=== PATIENT | female | born 1960 | race Two or more races ===

== ENCOUNTER 2024-09-14 19:16 | Emergency (ER) | payer MEDICAID, SELFPAY ==
[2024-09-14 19:17] VITALS: BMI 42.0
[2024-09-14 20:29] VITALS: BP 159/89; PULSE 94; RESP 18; TEMP 37.3; O2SAT 95
--- NOTE | 2024-09-14 20:40 | XR_ITS ---
Examination: Upright PA chest single view TECHNIQUE: Upright PA chest single view Exam date and time: September 14, [id number] hours INDICATIONS: Coughing shortness of breath beginning this morning. FINDINGS: Minimal increased markings left base Normal heart size. Right lung clear IMPRESSION: Atelectasis versus early pneumonia left base, the appearance should be clinically correlated
[2024-09-14] MEDS: dexAMETHasone 4 MG TABLET 10 MG PO (20:55)
--- NOTE | 2024-09-14 22:50 | EDNOTE_ITS ---
Upper Respiratory Inf. RME/HPI General Chief Complaint: Flu Like Symptoms Stated Complaint: FLU LIKE SYMPTOMS Time Seen by Provider: 09/14/24 20:40 Arrival date/time: 09/14/24 19:16 63F with history of asthma presents to ED with 1 day of nasal congestion, cough, and body aches. Family members have similar symptoms. Limitations: no limitations Related Data Home Medications ?Medication ?Instructions ?Recorded ?Confirmed albuterol sulfate 90 mcg/actuation 2 puff inhalation B ID 06/20/20 06/20/20 aerosol inhaler (Ventolin HFA) Previous Rx's ?Medication ?Instructions ?Recorded albuterol sulfate 90 mcg/actuation 2 puff inhalation Q 6H PRN 05/22/23 aerosol inhaler (Ventolin HFA) shortness of breath or wheezing #8.5 grams fluticasone propionate 50 1 spray intranasal QDAY #16 grams 05/22/23 mcg/actuation nasal spray,suspension (Flonase Allergy Relief) ibuprofen 800 mg tablet (IBU) 800 mg PO Q8H #20 tabs 1 07/23/22 loratadine 10 mg tablet 10 mg PO QDAY #30 tabs 05/22 promethazine-DM 6.25 mg-15 mg/5 mL 5 ml PO Q6H #118 mL 05/22/23 oral syrup Allergies Allergy/AdvReac Type Severity Reaction Status Date / Time Penicillins Allergy Severe Anaphylaxis Verified 05/22/23 10:35 Review of Systems Review of Systems Systems Reviewed: All systems reviewed, normal except as documented Constitutional Constitutional: Reports system reviewed and no additional complaints, except as documented, Reports as per HPI, Reports body ache(s), Denies fever(s) and Denies headache(s) ENT Ears, Nose, Mouth, and Throat: Reports as per HPI, Denies disequilibrium, Denies headache(s) and Reports nasal congestion Cardiovascular Cardiovascular: Reports system reviewed and no additional complaints, except as documented, Denies chest pain and Denies dyspnea Respiratory Respiratory: Reports system reviewed and no additional complaints, except as do cumented, Reports as per HPI, Reports cough and Denies dyspnea Gastrointestinal Gastrointestinal: Reports system reviewed and no additional complaints, except as documented, Denies abdominal pain, Denies nausea and Denies vomiting Neurologic Neurologic: Reports system reviewed and no additional complaints, except as documented, Denies confusion, Denies disequilibrium and Denies headache(s) Psychiatric Psychiatric: Denies confusion Past Medical History Past Medical History NEUROLOGIC: Negative Neurological Disorders, Cerebrovascular Accident, Transient Ischemic Attacks (TIA), Dementia, Alzheimer's Disease, Parkinson's Disease, Brain Tumor, Meningitis, Seizures, Epilepsy, Multiple Sclerosis, Cerebral Palsy, Amyotrophic Lateral Sclerosis (ALS/Sissy Gehrig's), Guillain-[place] Syndrome, Spina Bifida, Paralysis, Peripheral Neuropathy, Barksdale's Palsy, Subdural Hematoma, Migraine, Head Trauma, Spinal Cord Injury or Traumatic Brain Injury CARDIAC: Negative Cardiac Disorders, Myocardial Infarction, Cardiac Arrhythmia, Atrial Fibrillation, Angina, Heart Murmur, Coronary Artery Disease, Atherosclerotic Heart Disease, Peripheral Vascular Disease, Hypercholesterolemia, Aneurysm, Congestive Heart Failure, Congenital Heart Disease, Valvular Heart Disease, Rheumatic Fever, Cardiomyopathy, Edema, Pericarditis, Cellulitis, Deep Vein Thrombosis, Hypertension, Hypotension or Varicose Veins RESPIRATORY: Positive Asthma; Negative Chronic Obstructive Pulmonary Disease (COPD), Bronchitis, Emphysema, Pneumonia, Pulmonary Fibrosis, Cystic Fibrosis, Tuberculosis, Pulmonary Embolism, Pulmonary Edema or Sleep Apnea GASTROINTESTINAL: Positive Obesity; Negative Gastrointestinal Disorders, Hepatitis, Cirrhosis, Pancreatitis, Celiac Disease, Gall Bladder Disease, Gastrointestinal Bleed, Esophageal Varices, B arrett's Esophagus, Colitis, Ulcerative Colitis, Diverticulitis, Diverticulosis, Ulcer, Irritable Bowel, Crohn's Disease, Obstructive Bowel, Hiatal Hernia, Hemorrhoids or Gastroesophageal Reflux Disease GENITOURINARY: Positive Genitourinary Disorders and Kidney Stones (removed many years ago.); Negative Renal Disease, Polycystic Kidney Disease, Neurogenic Bladder, Inguinal Hernia or Dialysis REPRODUCTIVE: Positive Previous Pregnancies (2 children); Negative Endometriosis, Pelvic Inflammatory Disease or Uterine Prolapse MUSCULOSKELETAL: Negative Musculoskeletal Disorders, Muscular Dystrophy, Myasthenia Gravis, Marfan's Syndrome, Arthritis, Rheumatoid Arthritis, Osteoporosis, Degenerative Disk Disease, Gout, Scoliosis, Carpal Tunnel Syndrome, Fibromyalgia, Fractures, Degenerative Joint Disease, Osteomyelitis or Poliovirus ENT: Negative Cataracts, Glaucoma, Blind, Retinal Detachment, Macular Degeneration, Ear Infection, Deafness, Head Trauma or Eye Prosthesis ENDOCRINE: Negative Endocrine Disorders, Diabetes Mellitus Type 1, Diabetes Mellitus Type 2, Hypoglycemia, [place]'s Syndrome, [place]'s Disease, Hyperthyroidism, Hypothyroidism, Parathyroid Disease, Pituitary Disease, Systemic Lupus Erythematosus, Syndrome of Inappropriate Antidiuretic Hormone (SIADH), Adrenal Disease or Graves' Disease HEMATOLOGIC: Negative Blood Disorders, Anemia, Leukemia, Hemophilia, Thalassemia, Sickle Cell Disease or Clotting Problems PSYCHO/SOCIAL: Negative Psychiatric Problems, Schizophrenia, Recreational Drug Use, Bipolar Disorder, Depression, Anxiety, Behavior Problems, Self-Mutilation, Attention Deficit Disorder, Attention Deficit Hyperactivity Disorder, Depression, Post Traumatic Stress Disorder or Eating Disorder OTHER HISTORY: Positive Hospitalization; Negative Autoimmune Disease, Down Syndrome, Autism, Developmental Delay, Shingles, Falls, Blood Transfusions, Anesthesia Reactions, Organ Transplant, Chemotherapy, Radiation Therapy, Hyperbaric Therapy, MRSA, VRSA, Vancomycin- Resistant Enterococci, Human Immunodeficiency Virus (HIV), Chicken Pox, Measles, Mumps, Rubella (Latvian Measles), Pertussis, Clostridium Difficile or Cancer Family History FAMILY HISTORY: Negative Family Psychiatric Problems, Family Respiratory Disorders, Family Cardiac Disorders, Family Gastrointestinal Problems, Family Cancer, Family Surgery or Family Anesthesia Reaction Surgical History SURGICAL: Positive Abdominal Surgery, Tubal Ligation and Section; Negative Cardiac Surgery, Pacemaker, Angiogram, Endocrine Surgery, Thyroide ctomy, Ear Surgery, Eye Surgery, Nose Surgery, Oral Surgery, Tonsillectomy, Adenoidectomy, Cochlear Implant, Corneal Transplant, Throat Surgery, Tracheostomy, Gastric Bypass Surgery, Gastrostomy, Bowel Surgery, Joint Replacement, Amputation, Open Reduction Internal Fixation, Arthroscopy, Neurologic Surgery, Brain Shunt, Mastectomy, Lumpectomy, Hysterectomy or Organ Transplant Social History SMOKING STATUS: Never smoker SUBSTANCE USE: does not use ED Exam General Limitations: Present no limitations General appearance: Present alert and in no apparent distress Head Head exam: Present atraumatic Eye Eye exam: Present normal appearance, PERRL and EOMI ENT ENT exam: Present normal exam, normal oropharynx and mucous membranes moist Neck Neck exam: Present normal inspection, full ROM and trachea midline Chest Chest inspection: Present normal inspection and symmetric chest wall rise Respiratory Respiratory exam: Present normal lung sounds bilaterally and prolonged expiratory phase (mild) Cardiovascular Cardiovascular exam: Present regular rate, normal rhythm and normal heart sounds Abdominal Exam Abdominal exam: Present soft and normal bowel sounds Extremities Exam Extremities exam: Present normal inspection and full ROM Back Exam Back exam: Present normal inspection and full ROM Neurological Exam Neurological exam: Present alert, oriented X3 and CN II-XII intact Psychiatric Psychiatric exam: Present normal affect and normal mood Skin Skin exam: Present warm, dry, intact and normal color Course Quality Measures none Orders Category Date Time Status Bedside Influenza A&B Antigen Test NOW Care 09/14/24 19:28 Completed XR chest 1V portable Stat Exams 09/14/24 20:40 Completed dexAMETHasone TAB [Decadron Tab] Med 09/14/24 20:40 Discontinued 10 mg PO X1 ONE Vital Signs Vital signs: Vital Signs Temperature 99.1 F 09/14/24 20:29 Pulse Rate 94 09/14/24 20:29 Respiratory Rate 18 09/14/24 20:29 Blood Pressure 159/89 H 09/14/24 20:29 Pulse Oximetry (%) 95 09/14/24 20:29 Oxygen Delivery Method Room Air 09/14/24 20:29 O2 at 95% on RA and WNLs Upper Respiratory Infection MDM Narrative MDM Narrative:: 63F with history of asthma presents to ED with 1 day of nasal congestion, cough, and body aches. Family members have similar symptoms. Physical exam reveals clear NT and lungs. Mildly prolonged expiration. No sinus tenderness. Patient is afebrile, calm, and alert. Swabs neg. CXR atelectasis vs early PNA. More likely the former given duration of cough only 1 day. Most likely viral URI. Steroids improved symptoms. Patient data External records reviewed:: [facility] previous records Clinical information provided by:: patient Social determinants that could affect healthcare access:: none Patient has the following chronic illnesses:: asthma How is presenting disease/condition affected by chronic disease/condition?: exacerbated by Evaluation data The following diagnostics were reviewed and interpreted by me:: lab results and radiology exam(s) Lab and/or radiology exams considered but not ordered:: ordered Interpretation Summary: above Medications / Prescriptions Medications or Prescriptions considered but not ordered:: ordered Medication administrations:: Medication Administration History Discontinued Medications Dexamethasone (Dexamethasone 4 Mg Tablet) 10 mg PO X1 ONE Stop: 09/14/24 20:41 Last Admin: 09/14/24 20:55 Dose: 10 mg Documented By: OWEN rosado Consultations Consultation(s) initiated? (list below): No Diagnosis Upper Respiratory Differential Diagnosis: upper respiratory infection, croup, otitis media, sinusitis, viral infection, bronchitis, influenza, pharyngitis and other (CAP) Most likely diagnosis given after review of the tests above:: URI Admission Indicated Admission indicated?: not indicated Admission Request Was there a request for admission?: No Disposition Plan Disposition Plan: Discharge Discharge Attestation Discharge Attestation: The patient and all family members were given an opportunity to ask questions and understood the discharge instructions. Discharge instructions specifically effects, indications for sooner follow up or return to the emergency department, and the expected course of current diagnosis. Patient condition: Stable Discharge Plan Plan Patient Disposition: HOME (Self Care) Disposition Comment: Stable Prescriptions/Referrals Prescriptions/Med Rec: No Action albuterol sulfate [Ventolin HFA] 90 mcg/actuation HFA aerosol inhaler 2 puff INHALATION BID fluticasone propionate [Flonase Allergy Relief] 50 mcg/actuation spray,suspension 1 spray intranasal QDAY Qty: 16 0RF Rx Instructions: administer into each nostril ibuprofen [IBU] 800 mg tablet 800 mg PO Q8H Qty: 20 0RF loratadine 10 mg tablet 10 mg PO QDAY Qty: 30 0RF promethazine-DM 6.25-15 mg/5 mL syrup 5 ml PO Q6H Qty: 118 0RF albuterol sulfate [Ventolin HFA] 90 mcg/actuation HFA aerosol inhaler 2 puff inhalation Q6H PRN (Reason: shortness of breath or wheezing) Qty: 8.5 0RF Referrals: No Primary/Family,Physician [Primary Care Provider] - In 1 week Problem List Clinical Impression: Upper respiratory infection Patient/Caregiver Discharge Instructions Education Materials: ED URI, Viral, No Abx (Adult) Additional Instructions: Please follow-up with PCP within 24-48 hours and return immediately if symptoms worsen. Print Language: Tajik Stand Alone Forms: Work/School Release, Patient Portal Info Letter AYLA/ISREAL Supervising Physician AYLA/ISREAL Supervising Physician: Dr. Joe
== END 2024-09-14 21:59 | disposition home or self-care (01) ==
PROVIDERS: Emergency Provider Emergency Medicine
DX: J06.9 Acute upper respiratory infection, unspecified (principal); J45.909 Unspecified asthma, uncomplicated
CPT/HCPCS: 71045; 87400; 99283; J8540

== ENCOUNTER 2025-01-28 08:14 | Emergency (ER) | payer MEDICAID, SELFPAY ==
[2025-01-28 08:16] VITALS: BMI 38.6
[2025-01-28 08:29] VITALS: BP 174/92; BP 180/94; PULSE 69; RESP 20; TEMP 36.7; O2SAT 95
--- NOTE | 2025-01-28 08:41 | EKG_ITS ---
[facility] Test Date: 2025-01-28 Pat Name: RAJ YU Department: Room: - Gender: Female Dental Surgeon: : 1960 Requested By: Tay Marie Order Number: [id number] Reading MD: Tay Marie Measurements Intervals [place] Rate: 73 P: 35 MS: 173 QRS: 7 QRSD: 90 T: 28 QT: 384 QTc: 423 Interpretive Statements SINUS RHYTHM LOW QRS VOLTAGE IN PRECORDIAL LEADS [QRS DEFLECTION < 1.0 mV IN CHEST LEADS] No previous ECG available for comparison /store/S0/[id number].pdf
--- NOTE | 2025-01-28 08:42 | PD.EDRME ---
Rapid Medical Screening Exam RME Arrival date/time: 01/28/25 08:14 CC: Not feeling self , bilateral knee pain and flank pain HPI patient is taken Ozempic injection once a day for the last week. Patient recently placed on exam pen and should only be taking it once a week. Chief Complaint: General Adult/Misc Complain Time Seen by Provider: 01/28/25 08:39 Vital signs: Vital Signs Temperature 98.0 F 01/28/25 08:29 Pulse Rate 69 01/28/25 08:29 Respiratory Rate 20 01/28/25 08:29 Blood Pressure 174/92 H 01/28/25 08:29 Pulse Oximetry (%) 95 01/28/25 08:29 Oxygen Delivery Method Room Air 01/28/25 08:29
--- NOTE | 2025-01-28 08:53 | PC.NURSE ---
SPOKE WITH CALLI AT POISON CONTROL REGARDING OZEMPIC USE DAILY FOR A WEEK, POISON CONTROL RECOMMENDATIONS ARE TO CHECK FOR ELECTROLYTES, CHECK FOR PANCREATITIS, AND SUPPORTIVE CARE.
[2025-01-28 09:19] LABS: Collection Type, Urine Clean Catch
[2025-01-28 09:22] LABS: Bilirubin,Urine Negative (Negative); Blood,Urine Negative (Negative); Clarity,Urine Clear (Clear/Hazy); Color,Urine Lt-Yellow (Lt Yel-Yel); Glucose, Urine Negative (Negative); Ketones,Urine Negative (Negative); Leukocyte Esterase,Urine Negative (Negative); Nitrite,Urine Negative (Negative); PH,Urine 6.0 (5.0-7.0); Protein,Urine Negative (Neg - Trace); RBC,Urine 3 /hpf (0-3); Specific Gravity,Urine 1.015 (1.001-1.035); Squamous Epithelial Cell,Urine 4 /hpf (0-5); Urobilinogen,Urine Negative mg/dL (0.0-1.0); WBC,Urine 2 /hpf (0-5)
[2025-01-28 09:25] LABS: Basophils # (Auto) 0.1 Thou/mm3 (0.0-0.2); Basophils % (Auto) 1 % (0-2.5); Eosinophils # (Auto) 0.1 Thou/mm3 (0.0-0.5); Eosinophils % (Auto) 1 % (0-10); Hematocrit 41.6 % (36.0-46.0); Hemoglobin 13.7 g/dL (12.0-16.0); Immature Granulocytes Auto 0.01 Thou/mm3 (0.00-0.00); Lymphocytes # (Auto) 1.9 Thou/mm3 (1.0-4.8); Lymphocytes % (Auto) 25 % (10-50); Mean Corpuscular HGB Conc 32.9 g/dl (31.0-37.0); Mean Corpuscular Hemoglobin 29.1 pg (25.0-35.0); Mean Corpuscular Volume 88 fL (80-100); Monocytes # (Auto) 0.4 Thou/mm3 (0.0-0.8); Monocytes % (Auto) 5 % (0-12); Neutrophils # (Auto) 5.1 Thou/mm3 (1.8-7.7); Neutrophils % (Auto) 68 % (37-80); Nucleated Red Blood Cell # 0.00 Thou/mm3 (0.00-0.00); Nucleated Red Blood Cell % 0 /100 WBC (0); Platelet Count 267 Thou/mm3 (140-440); RDW Standard Deviation 44.9 fL (36.4-46.3); Red Blood Count 4.71 Miln/mm3 (4.00-5.20); White Blood Count 7.6 Thou/mm3 (3.6-11.0)
[2025-01-28 09:29] LABS: Amphetamine/Methamp Scrn,U Negative (Negative); Barbiturate Screen,Urine Negative (Negative); Benzodiazepines Screen,Urine Negative (Negative); Benzoylecgonine Screen, Ur Negative (Negative); Fentanyl Screen,Urine Negative (Negative); Opiate Screen,Urine Negative (Negative); THC Screen,Urine Negative (Negative)
[2025-01-28 09:39] VITALS: BP 141/73; BP 174/92; PULSE 61; RESP 19; TEMP 36.5; O2SAT 98
--- NOTE | 2025-01-28 09:45 | EDNOTE_ITS ---
ED General RME/HPI General Chief complaint: General Adult/Misc Complain Stated complaint: TOOK OZEMPIC DAILY FOR A WEEK, NAUSEA, SOB, ABD PA Time Seen by Provider: 01/28/25 08:39 Arrival date/time: 01/28/25 08:14 RME / HPI RME / HPI narrative: 01/28/25 08:14 CC: Not feeling self , bilateral knee pain and flank pain HPI patient is taken Ozempic injection once a day for the last week. Patient recently placed on exam pen and should only be taking it once a week. DR. BLANKENSHIP MAIN ED EVALUATION: 64-year-old female recently diagnosed with diabetes presents to the Emergency Department with complaints of dizziness, dry mouth, bilateral flank pain, and nausea. Patient was recently prescribed Ozempic but mistakenly took it daily for 7 days instead of the prescribed once-weekly dosing. Symptoms began after the last dose yesterday and include dizziness, anxiety, shakiness, and worsening abdominal/flank pain today. She denies dysuria, hematuria, or blood in stool. Patient has a history of UTI about 2 months ago, which resolved prior to starting Ozempic. No vomiting or diarrhea reported. No known allergies. Related Data Home Medications ?Medication ?Instructions ?Recorded ?Confirmed albuterol sulfate 90 mcg/actuation 2 puff inhalation B ID 06/20/20 06/20/20 aerosol inhaler (Ventolin HFA) Previous Rx's ?Medication ?Instructions ?Recorded albuterol sulfate 90 mcg/actuation 2 puff inhalation Q 6H PRN 05/22/23 aerosol inhaler (Ventolin HFA) shortness of breath or wheezing #8.5 grams fluticasone propionate 50 1 spray intranasal QDAY #16 grams 05/22/23 mcg/actuation nasal spray,suspension (Flonase Allergy Relief) ibuprofen 800 mg tablet (IBU) 800 mg PO Q8H #20 tabs 1 07/23/22 loratadine 10 mg tablet 10 mg PO QDAY #30 tabs 05/22 promethazine-DM 6.25 mg-15 mg/5 mL 5 ml PO Q6H #118 mL 05/22/23 oral syrup Allergies Allergy/AdvReac Type Severity Reaction Status Date / Time Penicillins Allergy Severe Anaphylaxis Verified 01/28/25 08:16 Review of Systems Review of Systems Systems Reviewed: All systems reviewed, normal except as documented Past Medical History Past Medical History RESPIRATORY: Positive Asthma GASTROINTESTINAL: Positive Obesity GENITOURINARY: Positive Genitourinary Disorders and Kidney Stones (removed many years ago.) REPRODUCTIVE: Positive Previous Pregnancies (2 children) OTHER HISTORY: Positive Hospitalization Surgical History SURGICAL: Positive Abdominal Surgery, Tubal Ligation and Section Social History SMOKING STATUS: Never smoker SUBSTANCE USE: does not use ALCOHOL: Never Travel History EBOLA RISK: No ED Exam Narrative Physical exam: Constitutional: Awake, alert, nontoxic, no acute distress, obese HEENT: NC, AT, EOMI Neck: Supple CV: RRR, no m/r/g Lungs: CTAB, no w/r/r, no respiratory distress. Abd: Soft, NT, ND, no HSM noted to palpation Extremities: No deformities, no edema noted Neuro: AAOx3, CN 2-12 GIBL, no acute neuro deficit noted. Skin: Warm, dry, intact Course Course Course Narrative: 1107: Patient will be discharged with accidental medicine overdose. Labs do not show any significant abnormality. Patient remains clinically stable throughout the emergency department visit. Re-assessment at the time of disposition demonstrates that the patient is in no acute distress. We reviewed all the results, analysis, and treatment plans. Patient is amenable to discharge. Strict return precautions were outlined. Patient was discharged in stable condition. Quality Measures none Orders Category Date Time Status EKG (ED ONLY) *Do not use* NOW Care 01/28/25 08:41 Completed EKG (ED Only) Stat Exams 01/28/25 08:41 Draft B-Type Natriuretic Peptide Stat Lab 01/28/25 09:12 Completed CBC Stat Lab 01/28/25 09:12 Completed Comprehensive Metabolic Panel Stat Lab 01/28/25 09:12 Completed Drug Screen,Urine Stat Lab 01/28/25 09:13 Completed Lipase Stat Lab 01/28/25 09:12 Completed Magnesium Stat Lab 01/28/25 09:12 Completed Partial Thromboplastin Time Stat Lab 01/28/25 10:08 Completed Prothrombin Time with INR Stat Lab 01/28/25 10:08 Completed Urinalysis Stat Lab 01/28/25 09:13 Completed Vital Signs Vital signs: Vital Signs Temperature 98.0 F 01/28/25 08:29 Pulse Rate 69 01/28/25 08:29 Respiratory Rate 20 01/28/25 08:29 Blood Pressure 174/92 H 01/28/25 08:29 Pulse Oximetry (%) 95 01/28/25 08:29 Oxygen Delivery Method Room Air 01/28/25 08:29 Discharge Plan Plan Patient Disposition: HOME (Self Care) Patient condition on transfer: Stable Prescriptions/Referrals Prescriptions/Med Rec: No Action albuterol sulfate [Ventolin HFA] 90 mcg/actuation HFA aerosol inhaler 2 puff INHALATION BID fluticasone propionate [Flonase Allergy Relief] 50 mcg/actuation spray,suspension 1 spray intranasal QDAY Qty: 16 0RF Rx Instructions: administer into each nostril ibuprofen [IBU] 800 mg tablet 800 mg PO Q8H Qty: 20 0RF loratadine 10 mg tablet 10 mg PO QDAY Qty: 30 0RF promethazine-DM 6.25-15 mg/5 mL syrup 5 ml PO Q6H Qty: 118 0RF albuterol sulfate [Ventolin HFA] 90 mcg/actuation HFA aerosol inhaler 2 puff inhalation Q6H PRN (Reason: shortness of breath or wheezing) Qty: 8.5 0RF Referrals: Saumya Fernandez, BI LEAD [Primary Care Provider] - In 1 week Problem List Clinical Impression: Accidental overdose Patient/Caregiver Discharge Instructions Education Materials: ED Accidental Ingestion Nontoxic Adult Print Language: Occitan Stand Alone Forms: Erica Award Info., Patient Portal Info Letter MDM Narrative [facility] hospital course: I, Melita Mcnally, am scribing for and in the presence of Dr. Blankenship. Clinical Information Provided by patient Medical Records Reviewed [facility] Meds/Rx Considered, not Ordered None Labs/Rad/Tests considered, not Ordered None Chronic Illness/Social Conditions Add or document further as needed: recently diagnosed with diabetes EKG EKG Interpretation narrative: My interpretation: EKG performed at 0847 hours, sinus rhythm, rate 73, no STEMI Lab Interpretation Labs: see narrative above Imaging Imaging interpretation: none Medication Administration(s) none Diagnosis Differential dx and/or dx ruled out: Medication overdose/toxicity from GLP-1 receptor agonist (Ozempic), dehydration or electrolyte imbalance, and diabetic ketosis or gastroparesis. Most likely dx, and/or detailed dx discussion: Accidental medicine overdose Dispositon Disposition: Discharge Home
[2025-01-28 09:49] LABS: B-Type Natriuretic Peptide < 20 pg/mL (0-100)
[2025-01-28 09:51] LABS: Alanine Aminotransferase 54 U/L (10-49); Albumin, Serum 4.3 gm/dL (3.4-4.8); Albumin/Globulin Ratio 1.4 (1.2-2.2); Alkaline Phosphatase 105 U/L (46-116); Anion Gap 9 (7-16); Aspartate Amino Transferase 56 U/L (0-34); BUN/Creatinine Ratio 9 Ratio (12-20); Bilirubin,Total 0.5 mg/dL (0.3-1.2); Blood Urea Nitrogen 7 mg/dL (9-23); Calcium 9.2 mg/dL (8.3-10.6); Calcium (Corrected) 9.2 mg/dL (8.5-10.1); Carbon Dioxide 25.1 mMol/L (20.0-31.0); Chloride 105 mMol/L (98-107); Creatinine (Component) 0.8 mg/dL (0.6-1.3); Estimated Creatinine Clearance 86.7 mL/min (>60); Globulin 3.1 gm/dL (2.3-3.5); Glucose 106 mg/dL (74-106); Lipase 26 U/L (12-53); Magnesium 2.0 mg/dL (1.6-2.6); Osmolality,Calculated 275 (275-295); Sodium 139 mMol/L (136-145); Total Protein 7.4 gm/dL (5.7-8.2); eGFR > 60 See Note
[2025-01-28 09:56] LABS: Potassium 4.4 mMol/L (3.4-5.1)
[2025-01-28 10:33] LABS: INR 1.0 (0.9-1.3); Partial Thromboplastin Time 26.8 Seconds (22.0-36.0); Prothrombin Time 11.4 Seconds (9.0-12.2)
[2025-01-28 12:29] VITALS: BP 138/59; PULSE 65; RESP 16; TEMP 36.8; O2SAT 97
== END 2025-01-28 12:29 | disposition home or self-care (01) ==
PROVIDERS: Registered Nurse General Practice; Emergency Provider Family Medicine; PCP Nurse Practitioner Family
DX: T38.3X1A Poisoning by insulin and oral hypoglycemic [antidiabetic] drugs, accidental (unintentional), initial encounter (principal); R42 Dizziness and giddiness; R10.9 Unspecified abdominal pain; E11.9 Type 2 diabetes mellitus without complications; J45.909 Unspecified asthma, uncomplicated; E66.9 Obesity, unspecified; Z68.38 Body mass index [BMI] 38.0-38.9, adult; Z79.899 Other long term (current) drug therapy; Z88.0 Allergy status to penicillin
CPT/HCPCS: 36415; 80053; 80307; 81001; 83690; 83735; 83880; 85025; 85610; 85730; 93005; 99283